=== PATIENT | female | born 1975 | race Caucasian/White ===

== ENCOUNTER 2017-07-20 07:51 | Outpatient (CLI) | payer BC ==
--- NOTE | 2017-07-20 08:43 | RAD ---
RADIOGRAPH BILATERAL HIPS TWO VIEWS: History: 49-year-old female with bilateral hip pain. FINDINGS: No dislocation. No evidence of fracture. Femoral head contours are maintained. No subcapital osteoph ytes. Hip joint spaces are maintained. No erosions. IMPRESSION: Negative. POS: [facility]
--- NOTE | 2017-07-20 09:13 | RAD ---
RADIOGRAPH LUMBAR SPINE 3 VIEWS: HISTORY: 41-year-old female with low back pain. FINDINGS: Alignment is normal. Vertebral body heights and disc spaces are maintained. There is no evidence of fracture. There are mild to moderate degenerative changes at several levels in the lower thoracic s pine. Small superior endplate marginal osteophyte at L4. No major interval change since 02-24-16. IMPRESSION: 1. Minimal degenerative changes in the lumbar spine. 2. Otherwise normal lumbar spine. 3. Discogenic degenerative changes in the thoracic spine. jay POS: [facility]
== END 2017-07-20 07:52 | disposition home or self-care (01) ==
LOC: RAD-FRANK 07:51
PROVIDERS: ATTEND Nurse Practitioner Family
DX: M25.551 Pain in right hip (principal); M54.5 Low back pain; M19.91 Primary osteoarthritis, unspecified site; M51.34 Other intervertebral disc degeneration, thoracic region
CPT/HCPCS: 72100; 73521

== ENCOUNTER 2017-08-03 08:30 | Outpatient (CLI) | payer BC ==
--- NOTE | 2017-08-03 10:50 | CT ---
CT OF THE ABDOMEN AND PELVIS WITH CONTRAST: Date: 08-03-17 Comparison: None. History: Left sided pain, weight loss, irritable bowel syndrome, back pain. Technique: Serial axial CT imaging obtained at 5 mm intervals from the lung bases through the pubic symphysis with intravenous and oral contrast. Coronal reformatted imaging was obtained. FINDINGS: The imaged lung bases appear unremarkable. No free intraperitoneal air or fluid is noted. Heterogeneous material seen within the vaginal vault suggesting hygiene products. The liver, gallbladder, spleen, pancreas, adrenal glands, and kidneys appear unremarkable. No evidence for bowel inflammatory change or bowel obstruction. Partially imaged appendix appears wi thin normal limits. No lymphadenopathy is evident. Vascular structures appear patent. Osseous structures demonstrate no acute findings. IMPRESSION: 1. Unremarkable CT of abdomen and pelvis. POS: [facility]
[2017-08-03] MEDS ORDERED: Iopamidol 370 76% 100 ML VIAL ONE (13:00)
== END 2017-08-03 08:31 | disposition home or self-care (01) ==
LOC: CT 08:30
PROVIDERS: ATTEND Nurse Practitioner Family
DX: R10.84 Generalized abdominal pain (principal); M54.5 Low back pain; M54.6 Pain in thoracic spine; F33.1 Major depressive disorder, recurrent, moderate; K58.0 Irritable bowel syndrome with diarrhea; R63.4 Abnormal weight loss
CPT/HCPCS: 74177

== ENCOUNTER 2018-03-01 17:29 | Emergency (ER) | payer BC ==
--- NOTE | 2018-03-01 19:54 | RAD ---
NASAL BONE RADIOGRAPHS THREE VIEWS: 03/01/2018 PROVIDED CLINICAL HISTORY: Nasal trauma. FINDINGS: A comminuted fracture of the nasal bone is demonstrated without significant displacement. No additio nal fracture is evident. The paranasal sinuses appear normally aerated. IMPRESSION: Comminuted, nondisplaced nasal bone fracture. POS: [facility]
== END 2018-03-01 18:33 | disposition home or self-care (01) ==
LOC: SCSER 17:29
DX: S02.2XXA Fracture of nasal bones, initial encounter for closed fracture (principal); W50.0XXA Accidental hit or strike by another person, initial encounter; Y93.67 Activity, basketball
CPT/HCPCS: 70160

== ENCOUNTER 2020-04-11 11:40 | Outpatient (CLI) | payer BC ==
--- NOTE | 2020-04-11 12:14 | RAD ---
XR Tib Fib Lt Leg 2 View HISTORY: Left leg wound and pain COMPARISON: None. FINDINGS: The left tibia and fibula are intact. No periosteal reaction or bony destruction is seen. No radiopaq ue foreign body or soft tissue air is seen. IMPRESSION: No radiographic evidence of osteomyelitis in the left leg
== END 2020-04-11 11:41 | disposition home or self-care (01) ==
LOC: BICRAD 11:40
PROVIDERS: ATTEND Nurse Practitioner Family
DX: S81.802A Unspecified open wound, left lower leg, initial encounter (principal)

== ENCOUNTER 2020-04-11 22:01 | Emergency (ER) | payer BC ==
[2020-04-11 22:45] LABS: PTT 30.2 sec (22.9-36.1); Prothrombin Time 12.8 sec (12.0-14.7)
[2020-04-11 22:46] LABS: #Basophils 0.1 thou/uL (0.0-0.2); #Eosinphils 0.2 thou/uL (0.0-0.7); #Lymphocytes 2.8 thou/uL (1.20-3.40); #Monocytes 0.7 thou/uL (0.11-0.59); %Basophils 0.9 % (0.0-1.0); %Eosinophils 2.2 % (0.0-10.0); %Lymphocytes 31.6 % (21.0-51.0); %Monocytes 8.2 % (0.0-10.0); %Neutrophils 57.1 % (42.0-75.0); Hemoglobin 13.7 g/dL (12.0-16.0); Mean Corpuscular HGB CONC 32.8 g/dL (32.0-36.0); Mean Corpuscular Hemoglobin 30.4 pg (27.0-31.0); Mean Corpuscular Volume 92.9 fL (78.0-98.0); Mean Platelet Volume 8.8 fL (7.4-10.4); Platelet Count 143 thou/uL (130-400); RBC Distribution Width 10.9 % (11.5-14.5); Red Blood Cell (RBC) Count 4.49 mill/uL (4.20-5.40); White Blood Cell (WBC) Count 8.8 thou/uL (4.8-10.8)
[2020-04-11] MEDS ORDERED: Morphine 4 MG/ML VIAL ONE (22:53)
[2020-04-11 22:59] LABS: ALT (SGPT) 17 U/L (8-55); AST (SGOT) 21 U/L (5-34); Albumin 4.5 g/dL (3.5-5.0); Alkaline Phosphatase 55 U/L (40-110); Anion Gap 13 mmol/L (10-20); BUN (Urea Nitrogen) 7 mg/dL (7.0-18.7); Bilirubin, Total 0.5 mg/dL (0.2-1.2); Calc. Creatinine Clearance 0 mL/min (70-130); Calcium 9.4 mg/dL (7.8-10.44); Carbon Dioxide 23 mmol/L (22-29); Chloride 106 mmol/L (98-107); Estimated GFR-MDRD 81; Globulin 2.8 g/dL (2.4-3.5); Glucose 86 mg/dL (70-105); Potassium 3.6 mmol/L (3.5-5.1); Protein, Total 7.3 g/dL (6.0-8.3); Sodium 138 mmol/L (136-145)
[2020-04-11 23:07] LABS: Bilirubin Negative (Negative); Blood, Urine Negative (Negative); Clarity Clear (Clear); Glucose, Urine (Dipstick) Normal (Negative); Ketone, Urine Negative (Negative); Leukocyte Negative Leu/uL (Negative); Nitrite Negative (Negative); Protein, Urine (Dipstick) Negative (Neg-Trace); Specific Gravity, Urine 1.022 (1.002-1.036); Urobilinogen Normal mg/dL (Less than 2); pH, Urine 5.5 (5.0-9.0)
[2020-04-12] MEDS ORDERED: Ketorolac Tromethamine 30 MG/ML VIAL ONE ×2 (00:09→02:53)
== END 2020-04-12 02:58 | disposition home or self-care (01) ==
LOC: ERS 22:01
DX: T63.061A Toxic effect of venom of other North and South American snake, accidental (unintentional), initial encounter (principal); F32.9 Major depressive disorder, single episode, unspecified
CPT/HCPCS: 36415; 80053; 81003; 82550; 85025; 85384; 85610; 85730; 86850; 86900; 86901; 96374; 96375; 96376; J1885; J2270

== ENCOUNTER 2020-04-13 13:23 | Emergency (ER) | payer BC ==
[2020-04-13 14:17] LABS: #Basophils 0.1 thou/uL (0.0-0.2); #Eosinphils 0.1 thou/uL (0.0-0.7); #Lymphocytes 1.5 thou/uL (1.20-3.40); #Monocytes 0.5 thou/uL (0.11-0.59); #Neutrophils 4.5 thou/uL (1.40-6.50); %Basophils 0.8 % (0.0-1.0); %Eosinophils 1.7 % (0.0-10.0); %Lymphocytes 22.4 % (21.0-51.0); Hemoglobin 14.7 g/dL (12.0-16.0); Mean Corpuscular HGB CONC 33.3 g/dL (32.0-36.0); Mean Corpuscular Hemoglobin 31.1 pg (27.0-31.0); Mean Corpuscular Volume 93.5 fL (78.0-98.0); Mean Platelet Volume 8.2 fL (7.4-10.4); Platelet Count 145 thou/uL (130-400); Red Blood Cell (RBC) Count 4.72 mill/uL (4.20-5.40); White Blood Cell (WBC) Count 6.7 thou/uL (4.8-10.8)
[2020-04-13 14:23] LABS: PTT 28.3 sec (22.9-36.1); Prothrombin Time 12.7 sec (12.0-14.7)
[2020-04-13 14:34] LABS: ALT (SGPT) 14 U/L (8-55); AST (SGOT) 21 U/L (5-34); Albumin 4.3 g/dL (3.5-5.0); Alkaline Phosphatase 57 U/L (40-110); Anion Gap 14 mmol/L (10-20); BUN (Urea Nitrogen) 6 mg/dL (7.0-18.7); Bilirubin, Total 0.4 mg/dL (0.2-1.2); CK (CPK) 80 U/L (29-168); Calc. Creatinine Clearance 0 mL/min (70-130); Calcium 9.4 mg/dL (7.8-10.44); Carbon Dioxide 22 mmol/L (22-29); Chloride 104 mmol/L (98-107); Estimated GFR-MDRD 73; Globulin 2.8 g/dL (2.4-3.5); Glucose 142 mg/dL (70-105); Potassium 3.7 mmol/L (3.5-5.1); Protein, Total 7.1 g/dL (6.0-8.3); Sodium 136 mmol/L (136-145)
--- NOTE | 2020-04-13 14:36 | ULT ---
RIGHT LOWER EXTREMITY VENOUS DOPPLER 04/13/20 PROVIDED CLINICAL HISTORY: Pain. FINDINGS: Kellogg scale and color Doppler sonography with spectral analysis was performed of the right common femo ral, femoral, popliteal, posterior tibial, greater saphenous and profunda femoral veins, demonstratin g a normal sonographic appearance to each. IMPRESSION: No sonographic evidence for right lower extremity deep venous thrombosis. POS: [facility]
[2020-04-13] MEDS ORDERED: HYDROcodone/Acetaminophen 5/325 mg Tablet ONE (15:11)
== END 2020-04-13 15:35 | disposition home or self-care (01) ==
LOC: ERS 13:23
DX: T63.061A Toxic effect of venom of other North and South American snake, accidental (unintentional), initial encounter (principal); F32.9 Major depressive disorder, single episode, unspecified; Z79.899 Other long term (current) drug therapy
CPT/HCPCS: 80053; 82550; 85025; 85384; 85610; 85730

== ENCOUNTER 2020-12-30 13:06 | Outpatient (CLI) | payer BC | END 2020-12-30 13:07 | disposition home or self-care (01) | LOC: RAD-FRANK 13:06 | PROVIDERS: ATTEND Nurse Practitioner Family | DX: S69.92XA Unspecified injury of left wrist, hand and finger(s), initial encounter (principal); S62.613A Displaced fracture of proximal phalanx of left middle finger, initial encounter for closed fracture ==

== ENCOUNTER 2021-02-18 15:35 | Outpatient (CLI) | payer BC | END 2021-02-18 15:36 | disposition home or self-care (01) | LOC: BICMRI 15:35 | PROVIDERS: ATTEND Nurse Practitioner Family | DX: S62.653D Nondisplaced fracture of middle phalanx of left middle finger, subsequent encounter for fracture with routine healing (principal); S63.693A Other sprain of left middle finger, initial encounter; R60.0 Localized edema ==

== ENCOUNTER 2021-08-12 11:54 | Outpatient (CLI) | payer BC | END 2021-08-12 11:55 | disposition home or self-care (01) | LOC: BICRAD 11:54 | PROVIDERS: ATTEND Nurse Practitioner Family | DX: S39.012A Strain of muscle, fascia and tendon of lower back, initial encounter (principal); M47.816 Spondylosis without myelopathy or radiculopathy, lumbar region | CPT/HCPCS: 72100 ==

== ENCOUNTER 2021-09-08 14:54 | Outpatient (CLI) | payer BC | END 2021-09-08 14:55 | disposition home or self-care (01) | LOC: BICMAMMO 14:54 | PROVIDERS: ATTEND Nurse Practitioner Family | DX: Z12.31 Encounter for screening mammogram for malignant neoplasm of breast (principal); Z80.3 Family history of malignant neoplasm of breast | CPT/HCPCS: 77063; 77067 ==

== ENCOUNTER 2022-04-24 12:33 | Outpatient (CLI) | payer BC | END 2022-04-24 12:34 | disposition home or self-care (01) | LOC: BICRAD 12:33 | PROVIDERS: ATTEND Nurse Practitioner Family | DX: M25.521 Pain in right elbow (principal) ==

== ENCOUNTER 2023-02-23 09:16 | Outpatient (CLI) | payer OTHER, BC | END 2023-02-23 09:17 | disposition home or self-care (01) | LOC: RAD 09:16 | PROVIDERS: ATTEND Nurse Practitioner Family | DX: W54.0XXD Bitten by dog, subsequent encounter (principal) ==